=== PATIENT | male | born 1965 | race Asian ===

== ENCOUNTER 2024-01-21 06:07 | Day surgery (SDC) | payer MEDICAID ==
[~2024-01-21] VITALS: Ht 170.2 cm; Wt 68.0 kg
[2024-01-21] MEDS ORDERED: fentaNYL CITRATE/PF 100 MCG/2 ML AMP ONE (07:24)
[2024-01-21] MEDS ORDERED: MIDAZOLAM HCL 5 MG/5 ML VIAL ONE (07:24)
[2024-01-21 12:47] VITALS: BP_SYST 133; PULSE 82; RESP 16; TEMP 97.1; O2SAT 100
== END 2024-01-21 09:55 | disposition home or self-care (01) ==
LOC: SDS 06:07 → SMU 06:08 → SDS 09:55
PROVIDERS: ATTEND Internal Medicine
DX: R19.5 Other fecal abnormalities (principal); D12.5 Benign neoplasm of sigmoid colon; K64.8 Other hemorrhoids; E11.9 Type 2 diabetes mellitus without complications; E78.5 Hyperlipidemia, unspecified; Z79.84 Long term (current) use of oral hypoglycemic drugs; Z79.899 Other long term (current) drug therapy
CPT/HCPCS: 45385; 99152; 82948; 88305; G0378; J2250; J3010